=== PATIENT | female | born 1955 | race African-American/Black ===

== ENCOUNTER 2017-01-01 06:49 | Emergency (ER) | payer BC ==
[~2017-01-01] VITALS: Ht 165.1 cm; Wt 110.0 kg
[2017-01-01 06:50] VITALS: BP 115/68; PULSE 127; RESP 50; O2SAT 95
[2017-01-01] MEDS ORDERED: ADENOSINE IV SOLN 3 MG/ML 2 ML VIAL IV PUSH ONE (06:50)
[2017-01-01] MEDS ORDERED: AMIODARONE HCL 150 MG/3 ML VIAL IV ONE (06:50)
[2017-01-01] MEDS ORDERED: EPINEPHrine HCL (1:10,000) 1 MG/10 ML SYRINGE IV ONE ×2 (06:50)
[2017-01-01 07:00] VITALS: O2SAT 96
[2017-01-01 07:03] VITALS: BP 122/74; PULSE 124; RESP 34; O2SAT 99
[2017-01-01 07:13] LABS: AUTOMATED NEUTROPHIL # 4.9 TH/MM3 (1.8-7.7); BASOPHIL % 0.2 % (0.0-2.0); EOSINOPHIL # 0.2 TH/MM3 (0-0.4); EOSINOPHIL % 1.1 % (0.0-4.0); HEMATOCRIT 39.6 % (35.0-46.0); LYMPH % 59.6 % (9.0-44.0); LYMPHOCYTE # 9.1 TH/MM3 (1.0-4.8); MEAN CELL VOLUME 87.8 FL (80.0-100.0); MEAN CORPUSCULAR HEMOGLOBIN 27.5 PG (27.0-34.0); MEAN CORPUSCULAR HGB CONC 31.3 % (32.0-36.0); MONO % 7.1 % (0.0-8.0); PLATELET COUNT 207 TH/MM3 (150-450); RED BLOOD COUNT 4.51 MIL/MM3 (4.00-5.30); WHITE BLOOD COUNT 15.3 TH/MM3 (4.0-11.0)
[2017-01-01 07:16] LABS: HEMO FLAGS AUTO DIFF
[2017-01-01 07:20] VITALS: BP 158/87; PULSE 108; RESP 21; O2SAT 100
[2017-01-01] MEDS: PROPOFOL 1000 MG/100 ML INJ 100 ML ONE ×2 (07:24→08:43)
--- NOTE | 2017-01-01 07:28 | PD ---
HPI . Respiratory distress Chief Complaint: Cardiac Complaint Time Seen by Provider: 07:24 Travel History International Travel<30 days: No Contact w/Intl Traveler<30days: No Traveled to known affect area: No History of Present Illness HPI The patient presents to us by EMS in respiratory distress. Minimal history is available at presentation. EMS reports that she has a history of hypertension and diabetes. The found her in acute respiratory distress shortly prior to presentation and called 911. EMS reports that they found her in acute respiratory distress and brought her immediately to the hospital. They were unable to obtain oxygen saturation prior to arrival. [facility] Past Medical History Diabetes: Yes Patient Takes Glucophage: No Hypertension: Yes Past Surgical History Surgical History: Unable to Obtain Social History Alcohol Use: No (UNABLE TO OBTAIN ) Tobacco Use: No (UNABLE TO OBTAIN ) Substance Use: No (UNABLE TO OBTAIN ) Allergies-Medications (Allergen,Severity, Reaction): Coded Allergies: Unable to Assess (Verified Allergy, Unknown, 01/01/17) Reported Meds & Prescriptions Reported Meds & Active Scripts Active Active Prescriptions or Reported Medications Unobtainable Review of Systems ROS Limitations: Clinical Condition Physical Exam Narrative GENERAL: This patient is in severe respiratory distress. SKIN: Cold and diaphoretic. HEAD: Atraumatic. Normocephalic. EYES: Pupils equal and round. Extraocular movements are intact. ENT: No nasal bleeding or discharge. Mucous membranes pink and moist. NECK: Trachea midline. Neck is supple. CARDIOVASCULAR: Regular rate and rhythm. Heart sounds normal. RESPIRATORY: The patient is in acute respiratory distress. She is tachypneic. GASTROINTESTINAL: Abdomen soft, non-tender, nondistended. MUSCULOSKELETAL: No obvious deformities. No edema. NEUROLOGICAL: Moving all 4 extremities equally. PSYCHIATRIC: Unable to assess. Data Data Last Documented VS Vital Signs Date Time Temp Pulse Resp B/P (MAP) Pulse Ox O2 Delivery O2 Flow Rate FiO2 01/01/17 07:14 100 01/01/17 07:03 124 34 122/74 (90) 99 15.00 01/01/17 07:00 Nasal Cannula Orders Orders Propofol 1000 Mg/100 Ml Inj (Diprivan 10 (01/01/17 06:58) Electrocardiogram (01/01/17 06:59) Complete Blood Count With Diff (01/01/17 06:59) Basic Metabolic Panel (Bmp) (01/01/17 06:59) Ckmb (Isoenzyme) Profile (01/01/17 06:59) Troponin I (01/01/17 06:59) Chest, Single Ap (01/01/17 06:59) Iv Access Insert/Monitor (01/01/17 06:59) Ecg Monitoring (01/01/17 06:59) Oxygen Administration (01/01/17 06:59) Oximetry (01/01/17 06:59) Arterial Blood Gas (Abg) (01/01/17 ) Lactic Acid (01/01/17 07:17) Blood Culture (01/01/17 07:17) Labs Laboratory Tests Test 01/01/17 07:03 White Blood Count 15.3 TH/MM3 Red Blood Count 4.51 MIL/MM3 Hemoglobin 12.4 GM/DL Hematocrit 39.6 % Mean Corpuscular Volume 87.8 FL Mean Corpuscular Hemoglobin 27.5 PG Mean Corpuscular Hemoglobin Concent 31.3 % Red Cell Distribution Width 15.0 % Platelet Count 207 TH/MM3 Mean Platelet Volume 7.9 FL Neutrophils (%) (Auto) 32.0 % Lymphocytes (%) (Auto) 59.6 % Monocytes (%) (Auto) 7.1 % Eosinophils (%) (Auto) 1.1 % Basophils (%) (Auto) 0.2 % Neutrophils # (Auto) 4.9 TH/MM3 Lymphocytes # (Auto) 9.1 TH/MM3 Monocytes # (Auto) 1.1 TH/MM3 Eosinophils # (Auto) 0.2 TH/MM3 Basophils # (Auto) 0.0 TH/MM3 CBC Comment AUTO DIFF MDM Medical Decision Making Medical Screen Exam Complete: Yes Emergency Medical Condition: Yes Medical Record Reviewed: Yes (this patient has no old records in our facility.) Interpretation(s) EKG shows diffuse ischemic changes. The computer is reading it as atrial fibrillation but it looks like a sinus rhythm today. She does have ST segment elevation in aVR. She has ST segment depression in I and V4-6. Differential Diagnosis Differential diagnosis of dyspnea includes but is not limited to congestive heart failure, pneumonia, wheezing, pneumothorax, pulmonary embolism Narrative Course This patient presented in acute respiratory distress. The decision to intubate this patient was made immediately upon her arrival. Dr. Willingham arrived shortly after the patient's arrival this morning. Myself and the respiratory therapist had been unable to obtain an airway. The patient was successfully intubated by Dr. Willingham. Her care has been turned over to Dr. Willingham at this point. Critical Care Narrative Aggregate critical care time was 30 minutes. Time to perform other separately billable procedures was not included in the critical care time. My time did not include minutes spent treating any other patients simultaneously or on activities that did not directly contribute to the patient's treatment. The services I provided to this patient were to treat and/or prevent clinically significant deterioration due to respiratory distress I provided critical care services requiring my management, as noted below: Chart data review, documentation time, medication orders and management, vital sign assessments/reviewing monitor data, ordering and reviewing lab tests, ordering and interpreting/reviewing x-rays and diagnostic studies, care of the patient and discussion of the patient with the admitting physicians Diagnosis Primary Impression: Acute respiratory distress Scripts Unable to Obtain Active Prescriptions or Reported Meds Condition: Serious Amy Kaba MD Jan 01, 2017 07:28
[2017-01-01 07:36] VITALS: O2SAT 95
[2017-01-01 07:43] LABS: ANION GAP 18 MEQ/L (5-15); BICARBONATE 18.3 MEQ/L (21.0-32.0); BLOOD UREA NITROGEN 10 MG/DL (7-18); CHLORIDE 101 MEQ/L (98-107); CREATINE KINASE 145 U/L (26-192); GLOMERULAR FILTRATION RATE 36 ML/MIN (>89); SODIUM (NA) 137 MEQ/L (136-145)
[2017-01-01] MEDS ORDERED: ETOMIDATE 20 MG/10 ML VIAL IV PUSH ONE ×2 (07:45)
[2017-01-01] MEDS ORDERED: SUCCINYLCHOLINE CHLORIDE 200 MG/10 ML VIAL IV PUSH ONE ×2 (07:45)
[2017-01-01 07:46] LABS: POTASSIUM 2.9 MEQ/L (3.5-5.1)
[2017-01-01] MEDS ORDERED: ATROPINE SULFATE 1 MG/10 ML SYRINGE ONE (07:46)
--- NOTE | 2017-01-01 07:47 | EKG ---
Date Performed: 01/01/2017 Time Performed: 06:53:30 PTAGE: 61 years EKG: SINUS TACHYCARDIA ST DEPRESSION, CONSIDER LATERAL ISCHEMIA ABNORMAL ECG NO PREVIOUS TRACING DOCTOR: Stoney Jenkins Interpretating Date/Time 01/01/2017 07:46:01
--- NOTE | 2017-01-01 07:51 | RADRPT ---
EXAM DATE/TIME: 01/01/2017 07:04 [place] COMPARISON: No previous studies available for comparison. INDICATIONS : Short of breath. Post intubation. MEDICAL HISTORY : Unobtainable SURGICAL HISTORY : Unobtainable ENCOUNTER: Initial ACUITY: 1 day PAIN SCORE: Non-responsive. LOCATION: Bilateral chest FINDINGS: There is an ETT at the level of the clavicles. An NGT courses beyond the GE junction with the limits of the image. Diffuse patchy airspace opacities throughout the left lobe. The cardiomediastinal conto urs are within normal limits. Bony thorax is intact. CONCLUSION: 1. ETT in good position. NGT beyond the GE junction, as above. 2. Diffuse patchy left lung opacities consistent with infection or atypical edema in the appropriate clinical setting. Nic Hernandez MD on January 01, 2017 at 7:47 Board Certified Radiologist. This report was verified electronically.
[2017-01-01 08:05] LABS: CKMB 1.4 NG/ML (0.5-3.6)
[2017-01-01] MEDS ORDERED: VASOPRESSIN 20 UNITS/ML VIAL (IVTITR) ONE ×2 (08:09→08:10)
[2017-01-01 08:13] LABS: APTT (PATIENT) 25.7 SEC (24.3-30.1); PROTHROMBIN TIME - PATIENT 11.3 SEC (9.8-11.6)
[2017-01-01 08:17] LABS: BANDS 1 % (0-6); BASOPHILS 1 % (0-2); EOSINOPHILS 1 % (0-4); NEUTROPHIL # MANUAL DIFF 5.8 TH/MM3 (1.8-7.7); PLATELET ESTIMATE SMEAR NORMAL (NORMAL); PLATELET MORPHOLOGY NORMAL (NORMAL); POLYS (SEG NEUTROPHILS) 37 % (16-70); SCAN/DIFF FINAL DIFF MANUAL; WBC DIFF SAMPLE 100
--- NOTE | 2017-01-01 08:33 | PD ---
Physical Exam Date Seen by Provider: Jan 01, 2017 Time Seen by Provider: 08:32 Narrative Patient was being intubated when I walked in. Please refer to the previous physician's chart for history and physical for details. I was told that patient was found by the family unresponsive and difficulty breathing and 911 was called. When EMS arrived she was found in extremis and she was brought in emergently to the emergency room. Patient was in respiratory failure when the decision by the previous ER physician was made to intubate her. Intubation was unsuccessful at which point I took over. I successfully intubated the patient. Please refer to my procedure note. Patient was started on ventilator awaiting for the blood test results to come back and a chest x-ray for tube confirmation. Equal air entry was heard upon auscultation after intubation as well as a CO2 color change. I had to leave the room to emergently go with another patient for a STEMI alert to the cardiac catheter lab as per the hospital protocol. When I returned at 8:25 AM patient was noticed to be coding by Dr. Morales. Please refer to his notes regarding the code details. Apparently patient started coding at 7:50 AM which was soon after I left. The thimble press operator Dr. Davenport was downstairs as well. They were getting ready to pronounce the patient. Dr. Morales was talking to the family. Data Data Last Documented VS Vital Signs Date Time Temp Pulse Resp B/P (MAP) Pulse Ox O2 Delivery O2 Flow Rate FiO2 01/01/17 07:36 95 100 01/01/17 07:20 108 21 158/87 (110) Auto-Vent 01/01/17 07:03 15.00 Orders Orders Propofol 1000 Mg/100 Ml Inj (Diprivan 10 (01/01/17 06:58) Electrocardiogram (01/01/17 06:59) Complete Blood Count With Diff (01/01/17 06:59) Basic Metabolic Panel (Bmp) (01/01/17 06:59) Ckmb (Isoenzyme) Profile (01/01/17 06:59) Troponin I (01/01/17 06:59) Chest, Single Ap (01/01/17 06:59) Iv Access Insert/Monitor (01/01/17 06:59) Ecg Monitoring (01/01/17 06:59) Oxygen Administration (01/01/17 06:59) Oximetry (01/01/17 06:59) Lactic Acid (01/01/17 07:17) Blood Culture (01/01/17 07:17) Succinylcholine Inj (Quelicin Inj) (01/01/17 07:45) Succinylcholine Inj (Quelicin Inj) (01/01/17 07:45) Etomidate Inj (Amidate Inj) (01/01/17 07:45) Etomidate Inj (Amidate Inj) (01/01/17 07:45) Prothrombin Time / Inr (Pt) (01/01/17 07:37) Act Partial Throm Time (Ptt) (01/01/17 07:37) B-Type Natriuretic Peptide (01/01/17 07:37) Restraints Non-Violent BRITTANEY.Q3H (01/01/17 07:37) Urinary Catheter Insert/Apply (01/01/17 07:37) Atropine Inj (Atropine Inj) (01/01/17 07:46) CKMB (01/01/17 07:03) CKMB% (01/01/17 07:03) Vasopressin Inj (Pitressin Inj) (01/01/17 08:09) Vasopressin Inj (Pitressin Inj) (01/01/17 08:10) Epinephrine (1:10,000) Inj (Epinephrine (01/01/17 06:50) Adenosine Inj (Adenocard Inj) (01/01/17 06:50) Amiodarone Inj (Cordarone Inj) (01/01/17 06:50) Epinephrine (1:10,000) Inj (Epinephrine (01/01/17 06:50) Labs Laboratory Tests Test 01/01/17 07:03 01/01/17 07:25 01/01/17 07:30 White Blood Count 15.3 TH/MM3 Red Blood Count 4.51 MIL/MM3 Hemoglobin 12.4 GM/DL Hematocrit 39.6 % Mean Corpuscular Volume 87.8 FL Mean Corpuscular Hemoglobin 27.5 PG Mean Corpuscular Hemoglobin Concent 31.3 % Red Cell Distribution Width 15.0 % Platelet Count 207 TH/MM3 Mean Platelet Volume 7.9 FL Neutrophils (%) (Auto) 32.0 % Lymphocytes (%) (Auto) 59.6 % Monocytes (%) (Auto) 7.1 % Eosinophils (%) (Auto) 1.1 % Basophils (%) (Auto) 0.2 % Neutrophils # (Auto) 4.9 TH/MM3 Lymphocytes # (Auto) 9.1 TH/MM3 Monocytes # (Auto) 1.1 TH/MM3 Eosinophils # (Auto) 0.2 TH/MM3 Basophils # (Auto) 0.0 TH/MM3 CBC Comment AUTO DIFF Differential Total Cells Counted 100 Neutrophils % (Manual) 37 % Band Neutrophils % 1 % Lymphocytes % 56 % Monocytes % 4 % Eosinophils % 1 % Basophils % 1 % Neutrophils # (Manual) 5.8 TH/MM3 Differential Comment FINAL DIFF MANUAL Platelet Estimate NORMAL Platelet Morphology Comment NORMAL Red Cell Morphology Comment NORMAL Blood Urea Nitrogen 10 MG/DL Creatinine 1.47 MG/DL Random Glucose 410 MG/DL Calcium Level 8.7 MG/DL Sodium Level 137 MEQ/L Potassium Level 2.9 MEQ/L Chloride Level 101 MEQ/L Carbon Dioxide Level 18.3 MEQ/L Anion Gap 18 MEQ/L Estimat Glomerular Filtration Rate 36 ML/MIN Total Creatine Kinase 145 U/L Creatine Kinase MB 1.4 NG/ML Troponin I 0.18 NG/ML B-Type Natriuretic Peptide 10 PG/ML Lactic Acid Level 12.1 mmol/L Prothrombin Time 11.3 SEC Prothromb Time International Ratio 1.0 RATIO Activated Partial Thromboplast Time 25.7 SEC MDM Supervised Visit with TERESSA: No Interpretation(s) Twelve-lead EKG shows normal sinus rhythm, normal axis, tachycardia, lateral ST depression. Heart rate of 122 bpm. Procedures Procedure Narrative After the risks and benefits were discussed the following procedure was performed: INTUBATION: The patient was put in optimal position for the procedure. Rapid sequence intubation was initiated by me using 20 milligrams of etomidate IV and 100 milligrams of succinylcholine IV. The patient was intubated with a 8.0cuffed endotracheal tube. Tube placement was confirmed by visualization of the tube and balloon passing through the cords, capnometry and subsequent chest x-ray. Breath sounds were equal and well aerated bilaterally postintubation. No breath sounds over stomach. Patient tolerated procedure well. Diagnosis Primary Impression: Acute respiratory distress Additional Impression: Respiratory failure Qualified Codes: J96.00 - Acute respiratory failure, unspecified whether with hypoxia or hypercapnia Scripts Unable to Obtain Active Prescriptions or Reported Meds Disposition: 20 Condition: Serge Willingham MD Jan 01, 2017 08:33
--- NOTE | 2017-01-01 16:09 | PD ---
Physical Exam Date Seen by Provider: Jan 01, 2017 Time Seen by Provider: 07:50 Narrative I was called to the bedside by the nurse for patient in bradycardia. The attending physician in pod C had to go to the Landscaping Specialist with a STEMI patient. The patient then went into V. fib. ACLS protocol was initiated. The nurse was able to tell me that she had a blood sugar 400 and a potassium of 2.9. CPR was initiated. The patient had multiple rounds (10) of epinephrine, 2 rounds of amiodarone, 1 round of 2 g of magnesium,. She was defibrillated 6 times. She did regain pulses 3 times however quickly went back into V. fib. The patient was pronounced at 08:27. Bedside ultrasound confirmed no cardiac activity. Asystole on the monitor. Data Data Last Documented VS Vital Signs Date Time Temp Pulse Resp B/P (MAP) Pulse Ox O2 Delivery O2 Flow Rate FiO2 01/01/17 07:36 95 100 01/01/17 07:20 108 21 158/87 (110) Auto-Vent 01/01/17 07:03 15.00 Orders Orders Propofol 1000 Mg/100 Ml Inj (Diprivan 10 (01/01/17 06:58) Electrocardiogram (01/01/17 06:59) Complete Blood Count With Diff (01/01/17 06:59) Basic Metabolic Panel (Bmp) (01/01/17 06:59) Ckmb (Isoenzyme) Profile (01/01/17 06:59) Troponin I (01/01/17 06:59) Chest, Single Ap (01/01/17 06:59) Iv Access Insert/Monitor (01/01/17 06:59) Ecg Monitoring (01/01/17 06:59) Oxygen Administration (01/01/17 06:59) Oximetry (01/01/17 06:59) Arterial Blood Gas (Abg) (01/01/17 ) Lactic Acid (01/01/17 07:17) Blood Culture (01/01/17 07:17) Succinylcholine Inj (Quelicin Inj) (01/01/17 07:45) Succinylcholine Inj (Quelicin Inj) (01/01/17 07:45) Etomidate Inj (Amidate Inj) (01/01/17 07:45) Etomidate Inj (Amidate Inj) (01/01/17 07:45) Prothrombin Time / Inr (Pt) (01/01/17 07:37) Act Partial Throm Time (Ptt) (01/01/17 07:37) B-Type Natriuretic Peptide (01/01/17 07:37) Restraints Non-Violent BRITTANEY.Q3H (01/01/17 07:37) Urinary Catheter Insert/Apply (01/01/17 07:37) Atropine Inj (Atropine Inj) (01/01/17 07:46) CKMB (01/01/17 07:03) CKMB% (01/01/17 07:03) Vasopressin Inj (Pitressin Inj) (01/01/17 08:09) Vasopressin Inj (Pitressin Inj) (01/01/17 08:10) Labs Laboratory Tests Test 01/01/17 07:03 01/01/17 07:25 01/01/17 07:30 White Blood Count 15.3 TH/MM3 Red Blood Count 4.51 MIL/MM3 Hemoglobin 12.4 GM/DL Hematocrit 39.6 % Mean Corpuscular Volume 87.8 FL Mean Corpuscular Hemoglobin 27.5 PG Mean Corpuscular Hemoglobin Concent 31.3 % Red Cell Distribution Width 15.0 % Platelet Count 207 TH/MM3 Mean Platelet Volume 7.9 FL Neutrophils (%) (Auto) 32.0 % Lymphocytes (%) (Auto) 59.6 % Monocytes (%) (Auto) 7.1 % Eosinophils (%) (Auto) 1.1 % Basophils (%) (Auto) 0.2 % Neutrophils # (Auto) 4.9 TH/MM3 Lymphocytes # (Auto) 9.1 TH/MM3 Monocytes # (Auto) 1.1 TH/MM3 Eosinophils # (Auto) 0.2 TH/MM3 Basophils # (Auto) 0.0 TH/MM3 CBC Comment AUTO DIFF Differential Total Cells Counted 100 Neutrophils % (Manual) 37 % Band Neutrophils % 1 % Lymphocytes % 56 % Monocytes % 4 % Eosinophils % 1 % Basophils % 1 % Neutrophils # (Manual) 5.8 TH/MM3 Differential Comment FINAL DIFF MANUAL Platelet Estimate NORMAL Platelet Morphology Comment NORMAL Red Cell Morphology Comment NORMAL Blood Urea Nitrogen 10 MG/DL Creatinine 1.47 MG/DL Random Glucose 410 MG/DL Calcium Level 8.7 MG/DL Sodium Level 137 MEQ/L Potassium Level 2.9 MEQ/L Chloride Level 101 MEQ/L Carbon Dioxide Level 18.3 MEQ/L Anion Gap 18 MEQ/L Estimat Glomerular Filtration Rate 36 ML/MIN Total Creatine Kinase 145 U/L Creatine Kinase MB 1.4 NG/ML Troponin I 0.18 NG/ML B-Type Natriuretic Peptide 10 PG/ML Lactic Acid Level 12.1 mmol/L Prothrombin Time 11.3 SEC Prothromb Time International Ratio 1.0 RATIO Activated Partial Thromboplast Time 25.7 SEC MDM Medical Record Reviewed: Yes Supervised Visit with TERESSA: No Narrative Course This is a 61-year-old female who was called to the bedside while the physician in her pod was taking the patient up to the Landscaping Specialist. The patient bradyed down and went into cardiac arrest. ACLS was initiated and multiple rounds of epinephrine, amiodarone, defibrillations were attempted. Patient did regain pulse 2-3 times however went back into V. fib and eventually went into asystole. She was pronounced at 08:27. I discussed with the family and boyfriend what had transpired. There are appropriately sad. All questions were answered and her body will be released to the [facility]eral home. Critical Care Narrative Aggregate critical care time was 60 minutes. Time to perform other separately billable procedures was not included in the critical care time. My time did not include minutes spent treating any other patients simultaneously or on activities that did not directly contribute to the patient's treatment. The services I provided to this patient were to treat and/or prevent clinically significant deterioration that could result in: I provided critical care services requiring my management, as noted below: Chart data review, documentation time, medication orders and management, vital sign assessments/reviewing monitor data, ordering and reviewing lab tests, ordering and interpreting/reviewing x-rays and diagnostic studies, care of the patient and discussion of the patient with the admitting physicians. Diagnosis Primary Impression: Cardiopulmonary arrest Additional Impressions: Acute respiratory distress Respiratory failure Qualified Codes: J96.00 - Acute respiratory failure, unspecified whether with hypoxia or hypercapnia Hypokalemia Hyperglycemia Scripts Unable to Obtain Active Prescriptions or Reported Meds Disposition: 20 Condition: Marco Morales MD Jan 01, 2017 16:09
== END 2017-01-01 15:10 | disposition expired ==
LOC: NEPC 06:49 → NEPB 15:10
DX: I46.9 Cardiac arrest, cause unspecified (principal); J96.00 Acute respiratory failure, unspecified whether with hypoxia or hypercapnia; E87.6 Hypokalemia; E11.65 Type 2 diabetes mellitus with hyperglycemia; R94.31 Abnormal electrocardiogram [ECG] [EKG]; I10 Essential (primary) hypertension
CPT/HCPCS: 31500; 71010; 80048; 82550; 82552; 83605; 83880; 84484; 85007; 85027; 85610; 85730; 87040; 92950; 93005; 96374; 96375; 99152; 99291; 99292; J0153; J0171; J0282; J0330; J0461